=== PATIENT | female | born 1955 | race Caucasian/White ===

== ENCOUNTER 2016-11-03 22:41 | Inpatient (IN) | payer MEDICARE, OTHER ==
[2016-11-03 23:26] LABS: ABSOLUTE NEUTROPHIL COUNT 5.1 K/mm3 (1.8-7.7); BASO % 0.2 % (0.2-1.0); HEMATOCRIT 36.3 % (37.0-47.0); HEMOGLOBIN 11.9 gm/l (12.0-16.0); IMM NEUT% 0.3 % (0-1); LYMPH # 0.4 (1.0-4.8); LYMPH % 6.2 % (15-45); MEAN CELL VOLUME 89.6 fl (81.0-99.0); MEAN CORPUSCULAR HEMOGLOBIN 29.4 pg (27.0-31.0); MEAN CORPUSCULAR HGB CONC 32.8 g/dl (33.0-37.0); MEAN PLATELET VOLUME 9.6 fl (7.4-10.4); MONO # 0.3 (0.0-0.8); MONO % 5.5 % (4-12); NEUT % 87.8 % (43-75); PLATELET COUNT 185 K/mm3 (130-400); RED CELL DISTRIBUTION WIDTH 13.2 % (11.5-14.5)
[2016-11-03 23:47] LABS: ALB/GLOB RATIO 1.2 (>1.0); ALBUMIN 3.8 gm/dL (3.5-5.7); CALCIUM 8.7 mg/dL (8.6-10.3)
[2016-11-03 23:55] LABS: CKMB < 1.0 ng/ml (<4.3); TROPONIN I < 0.05 ng/ml (<0.05)
[2016-11-04 00:01] LABS: INR 3.6; PROTHROMBIN TIME 40.4 SECONDS (9.3-11.4)
[2016-11-04] MEDS ORDERED: LEVOFLOXACIN 750 MG/D5W 150 ML 150 ML IV ONE (00:41)
[2016-11-04] MEDS ORDERED: ALBUTEROL NEB 2.5 MG/3 ML VIAL.NEB NEB PRN (01:08)
[2016-11-04] MEDS ORDERED: INSULIN ASPART (DOSE) 100 UNITS/1 ML SUB-Q PRN (01:12)
[2016-11-04] MEDS ORDERED: BLISTEX LIPSTICK 1 EACH TP PRN (01:55)
[2016-11-04] MEDS ORDERED: MAGNESIUM HYDROXIDE 30 ML UDCUP PO PRN (01:55)
[2016-11-04] MEDS ORDERED: MENTHOL/CETYLPYRD 1 EACH LOZENGE PO PRN (01:55)
[2016-11-04] MEDS ORDERED: SODIUM CHLORIDE 0.9% 100 ML IV PRN (01:55)
[2016-11-04] MEDS ORDERED: FLUTICASONE PROPIONATE 50 MCG/SPRAY 120 SPRAYS/16 G INH NS PRN (01:58)
[2016-11-04] MEDS ORDERED: ACETAMINOPHEN 500 MG TABLET PO ONE (01:59)
[2016-11-04] MEDS ORDERED: METHOCARBAMOL 750 MG TABLET PO SCH ×2 (02:00→02:15)
[2016-11-04 02:12] LABS: SPECIFIC GRAVITY 1.005 (1.001-1.030); URINE BILIRUBIN NEGATIVE (NEGATIVE); URINE BLOOD TRACE (NEGATIVE); URINE GLUCOSE (UA) NEGATIVE (NEGATIVE); URINE LEUKOCYTE ESTERASE NEGATIVE (NEGATIVE); URINE NITRITE NEGATIVE (NEGATIVE); URINE PROTEIN 1+ (NEGATIVE); URINE UROBILINOGEN NORMAL (0-1 mg/dl)
[2016-11-04] MEDS ORDERED: PUMP TUBING ONE (02:18)
[2016-11-04 02:19] LABS: URINE COLOR YELLOW
[2016-11-04] MEDS: SODIUM CHLORIDE 0.9% 1,000 ML IV SCH ×2 (02:19→15:41)
[2016-11-04 02:20] LABS: URINE APPEARANCE CLEAR; URINE RBC 0-1 /hpf; URINE WBC 0-1 /hpf
[2016-11-04] MEDS: PANTOPRAZOLE 40 MG TABLET DR PO SCH ×3 (02:21→20:04)
[2016-11-04 02:40] VITALS: BMI 23.7
[2016-11-04] MEDS ORDERED: METHOCARBAMOL 750 MG TABLET ONE (03:28)
[2016-11-04] MEDS: METHADONE 10 MG TABLET PO SCH ×2 (08:01→16:08)
[2016-11-04] MEDS: ALBUTEROL/IPRATROPIUM 2.5/0.5 MG 3 ML/EACH DOSE NEB SCH ×4 (08:31→21:05)
--- NOTE | 2016-11-04 08:50 | RAD ---
Exam: Two-view chest COMPARISON: 07/11/2016, 02/13/2010 INDICATION: Fever, cough and hypoxia. FINDINGS: AP and lateral views of the chest were obtained. Cardiac silhouette is within normal limits and stable. Lung volumes are somewhat low. There is no focal airspace disease or pleural effusion. A few bridging osteophytes are again appreciated within the thoracic spine. IMPRESSION: No acute pulmonary process.
[2016-11-04] MEDS ORDERED: LOSARTAN PO SCH (09:00)
[2016-11-04] MEDS ORDERED: HCTZ PO SCH (09:00)
[2016-11-04] MEDS: GABAPENTIN 600 MG TABLET PO SCH ×3 (09:43→20:04)
[2016-11-04] MEDS: DOCUSATE SODIUM 100 MG CAPSULE PO SCH (09:43)
[2016-11-04] MEDS: HYDROCHLOROTHIAZIDE 25 MG TABLET PO SCH (09:43)
[2016-11-04] MEDS: LOSARTAN POTASSIUM 50 MG TABLET PO SCH (09:44)
--- NOTE | 2016-11-04 11:12 | HP ---
SUMIT HERNANDEZ [id number] DATE OF : 1955 DATE OF ADMISSION: 11/04/2016 IDENTIFICATION: Ms. Hernandez is a 61-year-old followed by Dianne Vasquez, Family Nurse Practitioner. CHIEF COMPLAINT: Cough and dyspnea. HISTORY OF PRESENT ILLNESS: Ms. Hernandez has been sick for almost a week with upper and lower respiratory symptoms. She has had earache, sore throat, cough and dyspnea, with green sputum and fevers. She was seen by Ms. Vasquez on 11/01/2016 and prescribed something for her symptoms, but she does not know what that was. She continued to have fevers and worsening dyspnea, so came to [facility] Room late Sunday night. She was hypoxemic and febrile, felt to have pneumonia, and referred to the Hospitalist Service. REVIEW OF SYSTEMS: HEENT - she has had a headache, faintness, earache and sore throat. Respiratory - cough with green sputum and dyspnea. Pain with deep breathing and coughing. Cardiac - no chest pain or palpitations. Gastrointestinal - no nausea, vomiting or reflux. No diarrhea, constipation, hematochezia or melena. Genitourinary - she does report frequency. No dysuria. Musculoskeletal - achy all over. Constitutional - fever and chills. Her reports that she has not been eating well and he thinks she is losing weight. PAST MEDICAL HISTORY: 1. Diabetes mellitus Type-2. 2. History of deep venous thrombosis and pulmonary embolism, on chronic warfarin anticoagulation. 3. Hypertension. 4. Chronic back pain. 5. Gastroesophageal reflux disease. PAST SURGICAL HISTORY: 1. Hysterectomy and oophorectomy. 2. Appendectomy. 3. Back surgery. 4. Ankle surgery. ALLERGIES: Reported to cephalexin, penicillin, Relafen and sulfa drugs, all of which caused rashes. MEDICATIONS: 1. Docusate sodium 100 mg by mouth daily. 2. Losartan with hydrochlorothiazide 100/25 one tablet daily. 3. Metformin 500 mg by mouth twice a day. 4. Pantoprazole 40 mg by mouth twice a day. 5. Pravastatin 20 mg by mouth nightly. 6. Quetiapine 25 mg by mouth nightly. 7. Warfarin 5 mg a day, except for Sunday when she takes 4 mg. 8. Methocarbamol 750 mg by mouth three times a day. 9. Gabapentin 600 mg by mouth three times a day. 10. Methadone 10 mg by mouth three times a day. 11. Fluticasone nasal spray as needed. 12. Albuterol inhaler as needed. HABITS: No current or past tobacco use. No significant alcohol or drug use. SOCIAL HISTORY: She lives with her in [place]. Their daughter and grandson are in the household as well. She would want full resuscitative treatments. FAMILY HISTORY: Her father had heart disease. PHYSICAL EXAMINATION: GENERAL: This is a fatigued 61-year-old. She is currently having difficulty remembering her history or even staying awake. VITAL SIGNS: Temperature 103.1 degrees Fahrenheit. Pulse 88. Respiratory rate 22. Blood pressure 135/77. Oxygen saturation 96% on two liters. She was 87% on room air on presentation to the emergency department. HEENT: Pupils equal, round and reactive. Extraocular muscles intact. Oropharynx is somewhat dry, with full artificial dentures. NECK: She does have some bilateral cervical adenopathy. CHEST: Coarse breath sounds throughout. HEART: Regular. No murmur. ABDOMEN: Soft and nontender. Normal bowel tones. No organomegaly. No suprapubic tenderness. EXTREMITIES: There is a brace on the right ankle. She has good dorsalis pedis pulses. No cyanosis, clubbing or edema. NEUROLOGIC: Sleepy, but otherwise intact. She is oriented. LABORATORIES: White blood cell count is 5.8, with 88% neutrophils. Hemoglobin and hematocrit are 11.9 and 36.3. Platelets 185. INR is supratherapeutic at 3.6. Lactate 1.2, sodium 134, potassium 4.1, chloride 98 and C02 of 31. BUN of 9 and creatinine 0.6. Glucose of 134. Cardiac enzymes are negative. Influenza A and B are negative. IMAGING: Chest x-ray appears non-acute to me, but ER physician feels it shows pneumonia, radiology over-read is pending. EKG: Sinus rhythm with normal QTC, in spite of methadone therapy. ASSESSMENT: Ms. Hernandez is a 61-year-old who presents with community-acquired pneumonia, presumed to be bacterial or possibly viral, even Influenza A with a false negative test. She has sepsis as defined by tachycardia and fever in the setting of acute infection. She does have hypoxemia secondary to pneumonia. She has a mild degree of anemia and underlying history of hypertension, diabetes, pulmonary embolism on anticoagulation, chronic back pain and gastroesophageal reflux disease. PLAN: 1. Admit to Med-Surg. 2. Continue treatment with levofloxacin. Given her normal EKG, I am not concerned about the potential interaction with methadone and quetiapine. 3. Supplemental oxygen and nebulizer treatments as needed. 4. Continue outpatient medications, except for metformin. 5. Check blood sugars before meals and at bedtime, and cover with insulin as needed. 6. She is over-anticoagulated on warfarin and does not require any additional venous thromboembolism prophylaxis. We will hold her warfarin dose for today and repeat a prothrombin time on the morning of the . 7. Full code status.
[2016-11-04] MEDS: METHOCARBAMOL 750 MG TABLET PO SCH ×2 (11:17→20:04)
[2016-11-04] MEDS: ACETAMINOPHEN 325 MG TABLET PO PRN ×2 (15:41→23:40)
[2016-11-04] MEDS: QUETIAPINE FUMARATE 25 MG TABLET PO SCH (20:04)
[2016-11-05] MEDS: METHADONE 10 MG TABLET PO SCH ×3 (00:53→17:25)
[2016-11-05] MEDS: LEVOFLOXACIN 750 MG/D5W 150 ML 750 MG in Premix (D5W) 150 ml Bag 1 EACH IV SCH (00:53)
[2016-11-05] MEDS: METHOCARBAMOL 750 MG TABLET PO SCH ×3 (03:46→19:37)
[2016-11-05] MEDS: SODIUM CHLORIDE 0.9% 1,000 ML IV SCH (05:15)
[2016-11-05 06:30] LABS: ABSOLUTE NEUTROPHIL COUNT 3.7 K/mm3 (1.8-7.7); EOS % 0.2 % (0.9-2.9); HEMATOCRIT 31.2 % (37.0-47.0); IMM NEUT # 0.1 K/mm3 (0-0.2); IMM NEUT% 1.6 % (0-1); LYMPH # 1.2 (1.0-4.8); LYMPH % 22.9 % (15-45); MEAN CELL VOLUME 88.9 fl (81.0-99.0); MEAN CORPUSCULAR HEMOGLOBIN 28.5 pg (27.0-31.0); MEAN CORPUSCULAR HGB CONC 32.1 g/dl (33.0-37.0); MEAN PLATELET VOLUME 9.3 fl (7.4-10.4); MONO # 0.2 (0.0-0.8); MONO % 3.5 % (4-12); NEUT % 71.8 % (43-75); PLATELET COUNT 136 K/mm3 (130-400); RED CELL DISTRIBUTION WIDTH 13.2 % (11.5-14.5)
[2016-11-05 06:43] LABS: INR 2.8; PROTHROMBIN TIME 31.1 SECONDS (9.3-11.4)
[2016-11-05 06:46] LABS: CALCIUM 8.1 mg/dL (8.6-10.3)
[2016-11-05] MEDS: LOSARTAN POTASSIUM 50 MG TABLET PO SCH (08:21)
[2016-11-05] MEDS: DOCUSATE SODIUM 100 MG CAPSULE PO SCH (08:21)
[2016-11-05] MEDS: GABAPENTIN 600 MG TABLET PO SCH ×3 (08:21→21:06)
[2016-11-05] MEDS: HYDROCHLOROTHIAZIDE 25 MG TABLET PO SCH (08:21)
[2016-11-05] MEDS: PANTOPRAZOLE 40 MG TABLET DR PO SCH ×2 (08:21→21:06)
[2016-11-05] MEDS: ALBUTEROL/IPRATROPIUM 2.5/0.5 MG 3 ML/EACH DOSE NEB SCH ×4 (08:43→20:45)
[2016-11-05] MEDS: POTASSIUM CHLORIDE 20 MEQ TAB.PRT.SR PO SCH ×2 (09:59→21:06)
--- NOTE | 2016-11-05 11:43 | PDOC43 ---
- Subjective Chief Complaint: Cough and dyspnea Feeling a little better but still weak and ill. Poor apatite, continued cough. - Objective Vital Signs Temperature 99.0 F 11/05/16 08:00 Pulse Rate 69 11/05/16 08:00 Respiratory Rate 10 11/05/16 08:00 Blood Pressure 136/71 11/05/16 08:00 O2 Saturation by Pulse Oximetry 91 11/05/16 08:00 Oxygen Delivery Method Room Air Oxygen Flow Rate 0 Intake and Output 11/04/16 11/05/16 11/06/16 06:59 06:59 06:59 Intake Total 300 3798 Output Total 150 1350 Balance 150 2448 General: Alert, Oriented x3, Cooperative, No Acute Distress HEENT: Mucous membr. moist/pink Lungs: Other (ronchi throughout) Cardiovascular: Regular Rate and Rhythm Abdomen: Soft, Normal Bowel Sounds, No Tenderness, No Masses Extremities: Normal Pulses, No Edema Skin: Normal Color Neurological: Normal Speech Psych/Mental Status: Normal Mood Laboratory 11/05/16 05:30 11/05/16 05:30 11/05/16 11/04/16 11/04/16 05:30 20:58 16:09 RBC 3.51 L MCHC 32.1 L PT 31.1 H Anion Gap 6 L Estimated GFR 101 H POC Capillary Glucose 152 H 102 H Calcium 8.1 L % Immature Granulocyt 1.6 H Current Medications: Current meds reviewed in EMR. - Problems: Assessment/Plan (1) Sepsis Qualifiers: Sepsis type: sepsis due to unspecified organism Qualifier Code: (A41.9 ) Sepsis, unspecified organism Status: Acute Assessment/Plan: Present on admit With tachycardia, tachypnea, and hypoxemia due to pneumonia, specific infectious organism not identified. Sepsis has resolved. (2) Pneumonia Qualifiers: Pneumonia type: due to unspecified organism Laterality: bilateral Lung location: unspecified part of lung Qualifier Code: (J18.9) Pneumonia, unspecified organism Status: Acute Assessment/Plan: Present on admission by exam but not evident on CXR. Treated with levofloxacin , nebs, O2. Highly suspicious for Influenza A, will repeat test. (3) Anemia Status: Chronic Assessment/Plan: Chronic, mild and stable, defer w/u to outpatient PCP. (4) Hypoxemia Status: Acute Assessment/Plan: due to pneumonia, resolving. (5) Chronic back pain Status: Chronic Assessment/Plan: Continue methadone at usual dose. (6) Diabetes type 2, controlled Status: Chronic Assessment/Plan: BG well controlled. (7) GERD (gastroesophageal reflux disease) Status: Chronic Assessment/Plan: Continue PPI (8) HTN (hypertension), benign Status: Chronic Assessment/Plan: well controlled (9) Hyponatremia Status: Acute Assessment/Plan: Due to IVF, stop infusion. (10) Hypokalemia Status: Acute Assessment/Plan: replace. VTE Prophylaxis: On warfarin for history of PE Disposition: likely home tomorrow.
[2016-11-05] MEDS: ACETAMINOPHEN 325 MG TABLET PO PRN ×2 (14:34→21:06)
[2016-11-05] MEDS: QUETIAPINE FUMARATE 25 MG TABLET PO SCH (21:06)
[2016-11-06] MEDS: METHADONE 10 MG TABLET PO SCH ×4 (00:45→17:25)
[2016-11-06] MEDS: LEVOFLOXACIN 750 MG/D5W 150 ML 750 MG in Premix (D5W) 150 ml Bag 1 EACH IV SCH (00:45)
[2016-11-06] MEDS: METHOCARBAMOL 750 MG TABLET PO SCH ×3 (04:45→19:45)
[2016-11-06] MEDS ORDERED: BISACODYL 5 MG TABLET.EC PO PRN (07:47)
--- NOTE | 2016-11-06 07:47 | PDOC43 ---
- Subjective Chief Complaint: Cough and dyspnea Still feeling quite ill and weak. Cough and congestion continues. Poor apatite and c/o constipation. - Objective Vital Signs Temperature 98.2 F 11/06/16 07:07 Pulse Rate 69 11/06/16 07:08 Respiratory Rate 16 11/06/16 07:07 Blood Pressure 128/69 11/06/16 07:07 O2 Saturation by Pulse Oximetry 94 11/06/16 07:08 Oxygen Delivery Method Room Air Oxygen Flow Rate 0 Intake and Output 11/05/16 11/06/16 11/07/16 06:59 06:59 06:59 Intake Total 3798 1818 Output Total 1350 5450 475 Balance 0740 -7473 -787 General: Alert, Oriented x3, Cooperative, Mild Distress HEENT: Mucous membr. moist/pink Lungs: Other (bilateral ronchi, moderately improved from yesterday.) Cardiovascular: Regular Rate and Rhythm Abdomen: Soft, Normal Bowel Sounds, No Tenderness, No Masses Extremities: Normal Pulses, No Edema Skin: Normal Color Neurological: Normal Speech Psych/Mental Status: Normal Mood Laboratory 11/05/16 05:30 11/05/16 11/05/16 22:05 16:03 POC Capillary Glucose 116 H 140 H Current Medications: Current meds reviewed in EMR. - Problems: Assessment/Plan (1) Sepsis Qualifiers: Sepsis type: sepsis due to unspecified organism Qualifier Code: (A41.9 ) Sepsis, unspecified organism Status: Acute Assessment/Plan: Present on admit With tachycardia, tachypnea, and hypoxemia due to pneumonia, specific infectious organism not identified. Sepsis has resolved. (2) Pneumonia Qualifiers: Pneumonia type: due to unspecified organism Laterality: bilateral Lung location: unspecified part of lung Qualifier Code: (J18.9) Pneumonia, unspecified organism Status: Acute Assessment/Plan: Present on admission by exam but not evident on CXR. Treated with levofloxacin , nebs, O2. Presumed bacterial PNA but no specific organism identified. (3) Anemia Status: Chronic Assessment/Plan: Chronic, mild and stable, defer w/u to outpatient PCP. (4) Hypoxemia Status: Acute Assessment/Plan: due to pneumonia, resolved. (5) Chronic back pain Status: Chronic Assessment/Plan: Continue methadone at usual dose. (6) Diabetes type 2, controlled Status: Chronic Assessment/Plan: BG well controlled. (7) GERD (gastroesophageal reflux disease) Status: Chronic Assessment/Plan: Continue PPI (8) HTN (hypertension), benign Status: Chronic Assessment/Plan: well controlled (9) Hyponatremia Status: Acute Assessment/Plan: Due to IVF, stop infusion. (10) Hypokalemia Status: Acute Assessment/Plan: replace. VTE Prophylaxis: On warfarin for history of PE Disposition: likely home in 1-2 days on PO levofloxacin
[2016-11-06 08:45] LABS: CALCIUM 8.5 mg/dL (8.6-10.3)
[2016-11-06] MEDS: POTASSIUM CHLORIDE 20 MEQ TAB.PRT.SR PO SCH ×2 (09:01→20:05)
[2016-11-06] MEDS: LOSARTAN POTASSIUM 50 MG TABLET PO SCH (09:01)
[2016-11-06] MEDS: PANTOPRAZOLE 40 MG TABLET DR PO SCH ×2 (09:01→20:04)
[2016-11-06] MEDS: DOCUSATE SODIUM 100 MG CAPSULE PO SCH (09:01)
[2016-11-06] MEDS: HYDROCHLOROTHIAZIDE 25 MG TABLET PO SCH (09:01)
[2016-11-06] MEDS: GABAPENTIN 600 MG TABLET PO SCH ×3 (09:02→20:04)
[2016-11-06] MEDS: SENNOSIDES 8.6 MG TABLET PO SCH ×2 (09:04→20:06)
[2016-11-06] MEDS: ALBUTEROL/IPRATROPIUM 2.5/0.5 MG 3 ML/EACH DOSE NEB SCH ×4 (11:44→19:48)
[2016-11-06 14:42] LABS: INR 1.4; PROTHROMBIN TIME 14.9 SECONDS (9.3-11.4)
[2016-11-06] MEDS ORDERED: WARFARIN PER PHARMACY 1 EACH DOSE PO SCH (17:00)
[2016-11-06] MEDS: QUETIAPINE FUMARATE 25 MG TABLET PO SCH (21:57)
[2016-11-07] MEDS ORDERED: PUMP TUBING ONE (01:33)
[2016-11-07] MEDS: LEVOFLOXACIN 750 MG/D5W 150 ML 750 MG in Premix (D5W) 150 ml Bag 1 EACH IV SCH (01:36)
[2016-11-07] MEDS: METHADONE 10 MG TABLET PO SCH ×2 (01:37→09:19)
[2016-11-07] MEDS: METHOCARBAMOL 750 MG TABLET PO SCH ×2 (04:48→11:52)
[2016-11-07 07:06] LABS: HEMATOCRIT 32.4 % (37.0-47.0); HEMOGLOBIN 10.8 gm/l (12.0-16.0); MEAN CELL VOLUME 86.9 fl (81.0-99.0); MEAN CORPUSCULAR HGB CONC 33.3 g/dl (33.0-37.0)
[2016-11-07 08:18] LABS: INR 1.23
[2016-11-07] MEDS: ALBUTEROL/IPRATROPIUM 2.5/0.5 MG 3 ML/EACH DOSE NEB SCH ×2 (08:46→14:57)
[2016-11-07] MEDS: POTASSIUM CHLORIDE 20 MEQ TAB.PRT.SR PO SCH (09:19)
[2016-11-07] MEDS: DOCUSATE SODIUM 100 MG CAPSULE PO SCH (09:19)
[2016-11-07] MEDS: SENNOSIDES 8.6 MG TABLET PO SCH (09:19)
[2016-11-07] MEDS: LOSARTAN POTASSIUM 50 MG TABLET PO SCH (09:20)
[2016-11-07] MEDS: GABAPENTIN 600 MG TABLET PO SCH (09:20)
[2016-11-07] MEDS: HYDROCHLOROTHIAZIDE 25 MG TABLET PO SCH (09:20)
[2016-11-07] MEDS: PANTOPRAZOLE 40 MG TABLET DR PO SCH (09:20)
[2016-11-07 13:35] VITALS: BP 134/83
--- NOTE | 2016-11-07 16:58 | PDOC5 ---
ADMIT DATE: 11/04/16 DISCHARGE DATE: 11/07/16 ADMISSION DIAGNOSES: CAP Discharge Diagnoses: CAP DM II DVT, PE history HTN Chronic Pain GERD PROCEDURES PERFORMED THIS HOSPITALIZATION: None CONSULTATIONS: None HOSPITAL COURSE: This is a 61 year old female who presented to the emergency department for cough and shortness of breath. She was found to have pneumonia undetermined if viral or bacterial as x-ray did not show acute infiltrate, consolidation and was admitted to the hospital. She was requiring supplemental oxygen for her hypoxia upon admission. She was treated with levofloxacin and supportive care along with her chronic medical conditions. With her initial presentation with tachycardia and fever, she met sepsis criteria and was treated accordingly. She stabilized and slowly improved with cough and shortness of breath resolving. She was ambulatory without difficulty and tolerating a general diet on the morning of discharge. - Exam Vital Signs Temperature 98.3 F 11/07/16 13:20 Pulse Rate 68 11/07/16 13:20 Respiratory Rate 16 11/07/16 13:20 Blood Pressure 134/83 11/07/16 13:20 O2 Saturation by Pulse Oximetry 95 11/07/16 13:20 Oxygen Delivery Method Room Air Oxygen Flow Rate 0 General: Alert, Oriented x3, Cooperative, No Acute Distress HEENT: Atraumatic, PERRLA, EOMI, Mucous membr. moist/pink Lungs: Normal Air Movement, Other (B/L crackles, no wheezing, good air movement) Cardiovascular: Regular Rate and Rhythm, Normal S1, Normal S2 Abdomen: Soft, Non-Distended, No Rigid, No Tenderness, No Rebounding Extremities: No Cyanosis, No Edema, No Tenderness Peripheral Pulses: Dorsalis Pedis (L): 2+, Dorsalis Pedis (R): 2+ Neurological: Normal Speech Psych/Mental Status: Normal Mood - Results Laboratory 11/07/16 06:20 11/06/16 06:15 11/07/16 11/07/16 11/06/16 11:54 06:20 21:55 RBC 3.73 L PT 13.0 H POC Capillary Glucose 102 H 129 H 11/06/16 11/06/16 17:25 14:00 RBC PT 14.9 H POC Capillary Glucose 119 H Laboratory Tests 11/03/16 23:30 Influenza A (Rapid) Negative Influenza B (Rapid) Negative Imaging Results: CXR: No acute pulmonary process. - Problems:Assessment/Plan (1) Pneumonia Qualifiers: Pneumonia type: due to unspecified organism Laterality: bilateral Lung location: unspecified part of lung Qualifier Code: (J18.9) Pneumonia, unspecified organism Status: Acute Assessment/Plan: Present on admission by exam but not evident on CXR. Treated with levofloxacin , nebs, O2. Presumed bacterial PNA but no specific organism identified. (2) Sepsis Qualifiers: Sepsis type: sepsis due to unspecified organism Qualifier Code: (A41.9 ) Sepsis, unspecified organism Status: Acute Assessment/Plan: Present on admit With tachycardia, tachypnea, and hypoxemia due to pneumonia, specific infectious organism not identified. Sepsis has resolved. (3) Diabetes type 2, controlled Qualifiers: Diabetes mellitus complication status: without complication Diabetes mellitus mcc insulin use: without chemical maker use Qualifier Code: (E11.9 ) Type 2 diabetes mellitus without complications Status: Chronic Assessment/Plan: BG well controlled. (4) Chronic back pain Qualifiers: Back pain location: back pain in unspecified location Back pain laterality: unspecified Qualifier Code: (M54.9) Dorsalgia, unspecified Status: Chronic Assessment/Plan: Continue methadone at usual dose. (5) Hypoxemia Status: Acute Assessment/Plan: due to pneumonia, resolved. (6) Anemia Qualifiers: Anemia type: unspecified type Qualifier Code: (D64.9) Anemia, unspecified Status: Chronic Assessment/Plan: Chronic, mild and stable, defer w/u to outpatient PCP. (7) GERD (gastroesophageal reflux disease) Qualifiers: Esophagitis presence: without esophagitis Qualifier Code: (K21.9) Gastro-esophageal reflux disease without esophagitis Status: Chronic Assessment/Plan: Continue PPI (8) HTN (hypertension), benign Status: Chronic Assessment/Plan: well controlled (9) Pulmonary embolism Qualifiers: Pulmonary embolism type: other Chronicity: chronic Status: Chronic Assessment/Plan: continue warfarin - Disposition: Disposition: likely home in 1-2 days on PO levofloxacin - Discharge Plan Instruction Forms: Warfarin Therapy Education Prescriptions: Levofloxacin [Levaquin] 750 mg PO Q24H #10 tab Follow-Up: Dianne Vasquez FNP-C [Referring] - 11/13/16 2:15 pm (You will be seen at the [place] office) Condition: Stable Disposition: Home
== END 2016-11-07 16:00 | disposition home or self-care (01) | DRG 871 ==
LOC: ED 22:41 → MS 11-04 00:30
PROVIDERS: ADMIT Family Medicine; ATTEND Family Medicine
DX: A41.9 Sepsis, unspecified organism (principal); J18.9 Pneumonia, unspecified organism; E11.9 Type 2 diabetes mellitus without complications; Z86.718 Personal history of other venous thrombosis and embolism; Z79.01 Long term (current) use of anticoagulants; I10 Essential (primary) hypertension; G89.29 Other chronic pain; K21.9 Gastro-esophageal reflux disease without esophagitis; R09.02 Hypoxemia; D64.9 Anemia, unspecified